=== PATIENT | male | born 1960 | race Caucasian/White ===

== ENCOUNTER 2022-11-26 20:32 | Inpatient (IN) | payer BC ==
[2022-11-26] VITALS (8 sets, daily range): BP systolic 130–161; BP diastolic 75–83
[~2022-11-26] VITALS: Ht 182.9 cm; Wt 97.3 kg
[2022-11-26 21:04] LABS: BASO% 0.4 % (0-3); EOS% 1.7 % (0-8); HEMATOCRIT 48.3 % (39.0-50.0); HEMOGLOBIN 15.7 g/dl (14.0-18.0); IMMATURE GRANULOCYTES 0.1 % (0.0-5.0); LYMPH% 32.8 % (15-41); MEAN CELL VOLUME 87.2 fL CALC (80.0-100.0); MEAN CORPUSCULAR HGB 28.3 pG CALC (26.0-32.0); MEAN CORPUSCULAR HGB CONC 32.5 g/dL CAL (32.0-36.0); MONO% 8.4 % (2-13); NEUT# 4.34 thou/uL (1.82-7.42); NEUT% 56.6 % (42-76); RED BLOOD COUNT 5.54 mill/uL (4.70-6.10); RED CELL DISTRI WIDTH 11.7 % (11.5-15.5)
[2022-11-26 21:14] LABS: ALBUMIN 4.3 g/dL (3.2-5.0); ALKALINE PHOSPHATASE 90 u/l (38-126); ANION GAP 15 (6-22 (CALC)); BILIRUBIN, TOTAL 0.6 mg/dL (0.2-1.3); BUN 12 mg/dL (8-23); BUN/CREATININE RATIO 13 (12-20 (CALC)); CALCULATED LDLCHOLESTEROL 60 mg/dL (62-129 (CALC)); CARBON DIOXIDE 26 mmol/l (22-30); CHLORIDE 103 mmol/l (95-108); CHOLESTEROL HDL RATIO 2.7 (<4.4 (CALC)); CREATININE 0.9 mg/dL (0.7-1.3); GFR FOR AFR.AMER. > 60 ML/MIN (>=60 (CALC)); GFR OTHER RACES > 60 ML/MIN (>=60 (CALC)); HDL CHOLESTEROL 50 mg/dL (39.0-59.0); POTASSIUM 3.9 mmol/l (3.5-5.1); SGOT/AST 61 u/l (19-48); SODIUM 140 mmol/l (137-146); TOTAL CHOLESTEROL 134 mg/dl (0-199); TOTAL PROTEIN 7.2 g/dL (6.3-8.2); TOTAL TRIGLYCERIDES 121 mg/dl (0-149); VLDL CHOLESTROL 24 mg/dl (4-45 (CALC))
[2022-11-26 21:18] LABS: INTERNATIONAL NORMALIZED RATIO 1.1 RATIO (0.7-1.3); PROTHROMBIN TIME 10.6 SECONDS (9.0-12.5)
[2022-11-26] MEDS ORDERED: AMBIEN10 MG PO (22:29)
[2022-11-26] MEDS ORDERED: LOTENSIN10 MG PO (22:30)
[2022-11-26] MEDS ORDERED: HYDROCHLOROT25 MG PO (22:31)
[2022-11-26] MEDS ORDERED: DESVENLAFAXINE50 M2 PO (22:33)
[2022-11-26] MEDS ORDERED: LIPITOR80 M1 PO (22:34)
[2022-11-26] MEDS ORDERED: PLAVIX75 MG PO (22:35)
[2022-11-26] MEDS ORDERED: ARICEPT10 MG PO (22:35)
[2022-11-26] MEDS ORDERED: MEMANTINE HYDRO10 MG PO (22:37)
[2022-11-26] MEDS ORDERED: TAMSULOSIN0.4 MG PO (22:37)
[2022-11-26] MEDS ORDERED: B121000 MC1 PO (22:38)
[2022-11-26] MEDS ORDERED: XANAX0.5 MG PO (22:39)
[2022-11-26] MEDS ORDERED: AMBIEN5 MG PO (22:39)
[2022-11-26] MEDS ORDERED: CIALIS5 MG PO (22:41)
[2022-11-27] VITALS (78 sets, daily range): BP systolic 65–158; BP diastolic 44–138
[2022-11-27 06:13] LABS: BASO% 0.4 % (0-3); EOS% 1.6 % (0-8); HEMATOCRIT 46.5 % (39.0-50.0); HEMOGLOBIN 15.3 g/dl (14.0-18.0); IMMATURE GRANULOCYTES 0.2 % (0.0-5.0); LYMPH% 27.6 % (15-41); MEAN CORPUSCULAR HGB 28.3 pG CALC (26.0-32.0); MEAN CORPUSCULAR HGB CONC 32.9 g/dL CAL (32.0-36.0); MONO% 7.9 % (2-13); NEUT# 5.82 thou/uL (1.82-7.42); NEUT% 62.3 % (42-76); RED BLOOD COUNT 5.41 mill/uL (4.70-6.10); RED CELL DISTRI WIDTH 11.8 % (11.5-15.5)
[2022-11-27 06:37] LABS: ANION GAP 13 (6-22 (CALC)); BUN 11 mg/dL (8-23); BUN/CREATININE RATIO 13 (12-20 (CALC)); CARBON DIOXIDE 27 mmol/l (22-30); CHLORIDE 102 mmol/l (95-108); CREATININE 0.9 mg/dL (0.7-1.3); GFR FOR AFR.AMER. > 60 ML/MIN (>=60 (CALC)); GFR OTHER RACES > 60 ML/MIN (>=60 (CALC)); POTASSIUM 3.8 mmol/l (3.5-5.1); SODIUM 138 mmol/l (137-146)
[2022-11-27 06:40] LABS: ALKALINE PHOSPHATASE 83 u/l (38-126); BILIRUBIN, TOTAL 0.9 mg/dL (0.2-1.3); C-REACTIVE PROTEIN < 0.5 mg/dL (0-0.9); MAGNESIUM 2.1 mg/dL (1.6-2.3); SGOT/AST 55 u/l (19-48); TOTAL PROTEIN 6.9 g/dL (6.3-8.2)
[2022-11-27 20:03] LABS: URINE BILIRUBIN - DIPSTICK Negative (NEGATIVE); URINE COLOR Yellow; URINE GLUCOSE - DIPSTICK Negative (NEGATIVE); URINE KETONE Trace mg/dL (NEGATIVE)
[2022-11-27 20:04] LABS: URINE BLOOD DIPSTICK Negative (NEGATIVE); URINE LEUK ESTERASE Negative (NEGATIVE); URINE NITRITE - DIPSTICK Negative (Negative); URINE PROTEIN - DIPSTICK 100 mg/dL (NEG-TRACE); URINE SPECIFIC GRAVITY 1.025
[2022-11-27 20:08] LABS: URINE RBC 0-2 RBC/hpf (0-5); URINE WBC 0-2 WBC/hpf (0-5)
[2022-11-28] VITALS (14 sets, daily range): BP systolic 114–161; BP diastolic 49–83
[2022-11-28 05:58] LABS: BASO% 0.5 % (0-3); EOS% 1.5 % (0-8); HEMATOCRIT 44.3 % (39.0-50.0); IMMATURE GRANULOCYTES 0.1 % (0.0-5.0); LYMPH% 30.6 % (15-41); MEAN CORPUSCULAR HGB 29.1 pG CALC (26.0-32.0); MEAN CORPUSCULAR HGB CONC 33.9 g/dL CAL (32.0-36.0); MONO% 9.4 % (2-13); NEUT# 4.7 thou/uL (1.82-7.42); NEUT% 57.9 % (42-76); RED BLOOD COUNT 5.15 mill/uL (4.70-6.10); RED CELL DISTRI WIDTH 11.8 % (11.5-15.5)
[2022-11-28 06:02] LABS: ALBUMIN 3.6 g/dL (3.2-5.0); ALKALINE PHOSPHATASE 71 u/l (38-126); ANION GAP 11 (6-22 (CALC)); BUN 13 mg/dL (8-23); BUN/CREATININE RATIO 16 (12-20 (CALC)); CARBON DIOXIDE 28 mmol/l (22-30); CHLORIDE 105 mmol/l (95-108); CREATININE 0.9 mg/dL (0.7-1.3); GFR FOR AFR.AMER. > 60 ML/MIN (>=60 (CALC)); GFR OTHER RACES > 60 ML/MIN (>=60 (CALC)); MAGNESIUM 2.1 mg/dL (1.6-2.3); POTASSIUM 3.8 mmol/l (3.5-5.1); SGOT/AST 44 u/l (19-48); SODIUM 140 mmol/l (137-146); TOTAL PROTEIN 6.3 g/dL (6.3-8.2)
[2022-11-28 06:06] LABS: BILIRUBIN, TOTAL 0.5 mg/dL (0.2-1.3)
[2022-11-29] VITALS (10 sets, daily range): BP systolic 123–162; BP diastolic 64–136
[2022-11-29 09:06] LABS: BASO% 0.5 % (0-3); EOS% 2.4 % (0-8); HEMATOCRIT 44.4 % (39.0-50.0); HEMOGLOBIN 14.8 g/dl (14.0-18.0); IMMATURE GRANULOCYTES 0.1 % (0.0-5.0); LYMPH% 26.1 % (15-41); MEAN CELL VOLUME 87.1 fL CALC (80.0-100.0); MEAN CORPUSCULAR HGB CONC 33.3 g/dL CAL (32.0-36.0); MONO% 7.4 % (2-13); NEUT# 4.97 thou/uL (1.82-7.42); NEUT% 63.5 % (42-76); RED BLOOD COUNT 5.1 mill/uL (4.70-6.10)
[2022-11-29 09:54] LABS: ANION GAP 12 (6-22 (CALC)); BUN 14 mg/dL (8-23); BUN/CREATININE RATIO 16 (12-20 (CALC)); CARBON DIOXIDE 25 mmol/l (22-30); CHLORIDE 108 mmol/l (95-108); CREATININE 0.9 mg/dL (0.7-1.3); GFR FOR AFR.AMER. > 60 ML/MIN (>=60 (CALC)); GFR OTHER RACES > 60 ML/MIN (>=60 (CALC)); POTASSIUM 3.7 mmol/l (3.5-5.1); SODIUM 141 mmol/l (137-146)
[2022-11-29] MEDS ORDERED: PLAVIX75 MG PO ×2 (10:05→13:02)
[2022-11-29] MEDS ORDERED: LIPITOR80 M1 PO (10:05)
[2022-11-29] MEDS ORDERED: LAMOTRIGINE ER50 MG PO (10:07)
[2022-11-29] MEDS ORDERED: ASPIRIN 81 LOW81 MG PO (13:02)
== END 2022-11-29 14:01 | disposition home or self-care (01) | DRG 100 ==
LOC: ED 20:32 → ED-I 23:17 → ED 23:30 → ICU 23:31
PROVIDERS: Emergency Medicine; Student in an Organized Health Care Education/Training Program; ADMIT Internal Medicine; ATTEND Internal Medicine
DX: G40.909 Epilepsy, unspecified, not intractable, without status epilepticus (principal); I63.511 Cerebral infarction due to unspecified occlusion or stenosis of right middle cerebral artery; G81.94 Hemiplegia, unspecified affecting left nondominant side; R47.81 Slurred speech; R29.810 Facial weakness; R29.708 NIHSS score 8; I10 Essential (primary) hypertension; I69.998 Other sequelae following unspecified cerebrovascular disease; I25.2 Old myocardial infarction; F41.9 Anxiety disorder, unspecified; F32.9 Major depressive disorder, single episode, unspecified; N32.81 Overactive bladder; Z91.51 Personal history of suicidal behavior; Z79.02 Long term (current) use of antithrombotics/antiplatelets
CPT/HCPCS: J1650; J3101; Q9967